=== PATIENT | female | born 1960 | race Caucasian/White ===

== ENCOUNTER 2018-11-08 15:27 | Inpatient (IN) | payer OTHER ==
[~2018-11-08] VITALS: Ht 170.2 cm; Wt 64.0 kg
[2018-11-08 15:40] VITALS: BP 121/77
--- NOTE | 2018-11-08 15:51 | NUR ---
PT AMBULATED TO [facility] O[facility]LL AT THIS TIME
--- NOTE | 2018-11-08 16:06 | NUR ---
PT AMBULATED TO BED 12.
--- NOTE | 2018-11-08 16:06 | NUR ---
PATIENT PRESENTS TO ED WITH c/o ble edema with pain upon ambulating---hx cirrhosis jundice to sclera full clear speech, no accessory muscle use noted at this time. . . DENIES N/V/D; SKIN IS PINK/WARM/DRY; AAOX4 WITH EVEN AND STEADY GAIT; LUNGS CLEAR BL; HR EVEN AND REGULAR; PT DENIES ANY FEVER, CP, SOB, OR COUGH AT THIS TIME; PATIENT STATES PAIN OF 7/10 AT THIS TIME; VSS; PATIENT POSITIONED FOR COMFORT; HOB ELEVATED; BEDRAILS UP X2; BED DOWN. ER MD MADE AWARE OF PT STATUS.
--- NOTE | 2018-11-08 16:21 | NUR ---
easy to awaken ---asked to change into gown c/o ble pain swelling +2 pedal pulse <3 sec cap refill---full clear speech awaits md rodas
[2018-11-08 17:17] LABS: BASOPHILS # (AUTO) 0.1 K/uL (0.00-0.22); BASOPHILS % (AUTO) 1.2 % (0.0-2.0); EOSINOPHILS # (AUTO) 0.1 K/uL (0-0.4); EOSINOPHILS % (AUTO) 1.1 % (0.0-4.0); HEMATOCRIT 31.8 % (36-48); HEMOGLOBIN 10.5 g/dL (12.0-16.0); LYMPHOCYTES # (AUTO) 0.8 K/uL (2.5-16.5); MEAN CORPUSCULAR HEMOGLOBIN 33 pg (27-31); MEAN CORPUSCULAR HGB CONC 33 g/dL (33-37); MEAN CORPUSCULAR VOLUME 99.5 fL (80-94); MONOCYTES # (AUTO) 0.6 K/uL (0.8-1.0); MONOCYTES % (AUTO) 9.5 % (1.7-9.3); NEUTROPHILS % (AUTO) 76.2 % (42.2-75.2); PLATELET COUNT (AUTO) 189 K/uL (140-450); RED BLOOD CELL COUNT(AUTO) 3.19 MIL/uL (4.20-5.40); RED CELL DISTRIBUTION WIDTH 21.4 % (11.6-13.7); WHITE BLOOD COUNT (AUTO) 6.5 K/uL (4.8-10.8)
[2018-11-08 17:35] LABS: PROTHROMBIN TIME 10.9 secs (10.8-13.4)
[2018-11-08 17:40] LABS: AMYLASE 201 U/L (25-115); ANION GAP 10.6 (8-16); CARBON DIOXIDE 29.3 mmol/L (21-32); CREATININE 0.6 mg/dL (0.6-1.3); LIPASE 131 U/L (73-393); POTASSIUM 3.9 mmol/L (3.5-5.1)
[2018-11-08 17:44] LABS: ALBUMIN 2.4 g/dL (3.4-5.0); TOTAL BILIRUBIN 0.7 mg/dL (0.0-1.0)
--- NOTE | 2018-11-08 18:00 | NUR ---
ultrasound at bedside
[2018-11-08 18:07] LABS: APPEARANCE,URINE CLOUDY (CLEAR); BILIRUBIN,URINE 2+ (NEGATIVE); BLOOD, URINE NEGATIVE (NEGATIVE); COLOR,URINE YELLOW (YELLOW); LEUKOCYTE ESTERASE ,URINE NEGATIVE (NEGATIVE); NITRITE, URINE NEGATIVE (NEGATIVE); PH,URINE 5.5 (5.0-9.0); UGLUCOSE NEGATIVE (NEGATIVE)
--- NOTE | 2018-11-08 18:29 | NUR ---
ultrasound finished[facility]
--- NOTE | 2018-11-08 18:41 | NUR ---
returned from ct via [facility]---awake alert; requested blanket continues to wait for results for dispo
--- NOTE | 2018-11-08 19:15 | NUR ---
RECEIVED REPORT FROM AM NURSE. PT LAYING BED, RR EVEN AND UNLABORED. VSS. ALL NEEDS MET.
[2018-11-08] MEDS ORDERED: NACL 0.9% 1,000 ML IV SCH (19:57)
[2018-11-08] MEDS ORDERED: DOCUSATE SODIUM 100 MG GELCAP PO PRN (20:00)
[2018-11-08] MEDS ORDERED: HYDROcodone/APAP 5/325 MG 1 TAB TAB PO PRN (20:00)
[2018-11-08] MEDS ORDERED: ONDANSETRON 4 MG/2 ML VIAL IM/IVP PRN (20:00)
[2018-11-08] MEDS ORDERED: ZOLPIDEM 5 MG TAB PO PRN (20:00)
[2018-11-08] MEDS ORDERED: ACETAMINOPHEN 325 MG TAB PO PRN (20:00)
[2018-11-08] MEDS ORDERED: KETOROLAC 30 MG/ML VIAL IVP ONE (20:10)
--- NOTE | 2018-11-08 20:10 | NUR ---
DR ZAZUETA AT BEDSIDE
--- NOTE | 2018-11-08 20:36 | NUR ---
Patient will be admitted to care of DR. SY. Admited to TELE. Will go to room 111A. Belongings list completed. Report to TOMMIE VICTORIA.
[2018-11-08 20:46] LABS: BARBITURATE, URINE NEG. ng/ml (NEG <=200); BENZODIAZEPINE, URINE NEG. ng/mL (NEG <=200); CANNABINOID, URINE NEG. ng/mL (NEG <=50); COCAINE, URINE NEG. ng/mL (NEG <=300); OPIATE, URINE NEG. ng/mL (NEG <=2000); PHENCYCLIDINE SCREEN,URINE NEG. ng/mL (NEG <=25)
--- NOTE | 2018-11-08 20:58 | NUR ---
PT ARRIVED TO UNIT VIA GURNEY AT 20:43. RECEIVED REPORT FROM NARROW FABRIC LOOM FIXER RONDA, THEN CONTINUED TO COLLECT MRSA SWAB AND ASSESSED PT. PT AAOX4, ON ROOM AIR. ABLE TO FOLLOW COMMANDS, AND ABLE TO MAKE NEEDS KNOWN. PT AMBULATES WITH STEADY GAIT, AND SKIN IS INTACT. ABDOMEN IS DISTENDED AND FIRM WITH SOME TENDERNESS. RESPIRATIONS EVEN AND UNLABORED. PT HAS A 20G IV TO RIGHT FOREARM, ASYMPTOMATIC, DRY, AND INTACT. DISCUSSED PLAN OF CARE WITH PT, PT VERBALIZED UNDERSTANDING. NO SIGNS OF DISTRESS NOTED. DENIES PAIN. VITAL SIGNS STABLE. BED IN LOWEST POSITION, CALL LIGHT WITHIN REACH. WILL CONTINUE TO MONITOR.
[2018-11-08 20:59] LABS: MAGNESIUM 1.2 mg/dL (1.8-2.4); PHOSPHORUS 4.4 mg/dL (2.5-4.9); THYROID STIMULATING HORMONE 2.21 uIU/mL (0.34-3.74)
[2018-11-08] MEDS ORDERED: NICOTINE TRANSD SYS 14 MG/24 HR PATCH TD SCH (22:00)
[2018-11-08] MEDS ORDERED: ALUMINUM HYD/MAG/SIMETHICONE 30 ML UDC PO SCH (22:15)
[2018-11-08] MEDS ORDERED: DICYCLOMINE HCL LIQUID 10 MG/5 ML UDC PO SCH (22:15)
[2018-11-08] MEDS ORDERED: LIDOCAINE VISCOUS 2% 20 ML UDC PO SCH (22:15)
[2018-11-08] MEDS: DEXT 5% /NACL 0.9% 1,000 ML IV SCH (22:22)
[2018-11-08 22:30] VITALS: BP 126/87
--- NOTE | 2018-11-08 22:45 | NUR ---
GOT CONSENT FROM PT FOR CT WITH CONTRAST AFTER DR ZAZUETA EXPLAINED THE PROCEDURE TO PT, AND PT HAD OPPORTUNITY TO ASK QUESTIONS. STARTED ANOTHER 20G IV ABOVE LEFT AC FOR CONTRAST.
[2018-11-08] MEDS ORDERED: PANTOPRAZOLE 40 MG TABEC PO SCH (23:00)
[2018-11-08] MEDS ORDERED: MAG SULF 2000 MG/WATER PREMIX 50 ML IV SCH (23:00)
--- NOTE | 2018-11-09 | NUR ---
NO SIGNS OF DISTRESS NOTED. DENIES PAIN. VITAL SIGNS STABLE. BED IN LOWEST POSITION, CALL LIGHT WITHIN REACH. WILL CONTINUE TO MONITOR.
--- NOTE | 2018-11-09 02:18 | NUR ---
PT SLEEPING, EASILY AROUSABLE. NO SIGNS OF DISTRESS NOTED. BED IN LOWEST POSITION, CALL LIGHT WITHIN REACH. WILL CONTINUE TO MONITOR.
[2018-11-09 04:00] VITALS: BP 128/87
--- NOTE | 2018-11-09 04:00 | NUR ---
VITAL SIGNS STABLE, DENIES HAVING ANY PAIN AT THIS TIME. NO SIGNS OF DISTRESS NOTED. BED IN LOWEST POSITION, CALL LIGHT WITHIN REACH. WILL CONTINUE TO MONITOR.
--- NOTE | 2018-11-09 04:40 | NUR ---
PT WENT TO CT.
--- NOTE | 2018-11-09 05:12 | NUR ---
PT IS BACK FROM CT AT THIS TIME.
[2018-11-09] MEDS: PANTOPRAZOLE 40 MG TABEC PO SCH (05:30)
--- NOTE | 2018-11-09 05:30 | NUR ---
ADMINISTERED SCHEDULED MEDICATION, PT TOLERATED WELL.
--- NOTE | 2018-11-09 07:26 | NUR ---
ENDORSED PT TO DAY SHIFT JULIEN ORELLANA, AT BEDSIDE, FOR CONTINUITY OF CARE. PT IN STABLE CONDITION.
--- NOTE | 2018-11-09 07:28 | NUR ---
RECEIVED HAND OFF REPORT FROM BLASTING COAL MINER NURSE. PT IS AWAKE AND RESTING COMFORTABLY IN BED. PT IS STABLE AND APPEARS IN NO APPARENT DISTRESS WILL CONTINUE TO MONITOR.
[2018-11-09 08:00] VITALS: BP 147/91
[2018-11-09 08:02] LABS: BASOPHILS # (AUTO) 0.1 K/uL (0.00-0.22); EOSINOPHILS # (AUTO) 0.2 K/uL (0-0.4); EOSINOPHILS % (AUTO) 2.2 % (0.0-4.0); HEMATOCRIT 34.3 % (36-48); HEMOGLOBIN 11.1 g/dL (12.0-16.0); LYMPHOCYTES # (AUTO) 0.8 K/uL (2.5-16.5); LYMPHOCYTES % (AUTO) 10.4 % (20.5-51.1); MEAN CORPUSCULAR HEMOGLOBIN 32 pg (27-31); MEAN CORPUSCULAR HGB CONC 32 g/dL (33-37); MEAN CORPUSCULAR VOLUME 100.2 fL (80-94); MONOCYTES # (AUTO) 0.7 K/uL (0.8-1.0); NEUTROPHILS # (AUTO) 5.7 K/uL (1.8-7.7); NEUTROPHILS % (AUTO) 77.4 % (42.2-75.2); PLATELET COUNT (AUTO) 194 K/uL (140-450); RED BLOOD CELL COUNT(AUTO) 3.42 MIL/uL (4.20-5.40); RED CELL DISTRIBUTION WIDTH 21.1 % (11.6-13.7); WHITE BLOOD COUNT (AUTO) 7.4 K/uL (4.8-10.8)
[2018-11-09 08:29] LABS: T4 (THYROXINE) 10.6 ug/dL (4.5-12.0)
--- NOTE | 2018-11-09 08:32 | NUR ---
PATIENT HAS BEEN SCREENED AND CATEGORIZED MODERATE NUTRITION RISK. PATIENT WILL BE SEEN WITHIN 3-5 DAYS OF ADMISSION. 11/11/18CHID[address]
[2018-11-09] MEDS: NICOTINE TRANSD SYS 14 MG/24 HR PATCH TD SCH (08:52)
--- NOTE | 2018-11-09 09:00 | NUR ---
FREQUENT ROUNDING ON PATIENT PT IS STABLE AND IN NO APPARENT DISTRESS. ALL SAFETY MEASURES ARE IN PLACE. WILL CONTINUE TO MONITOR.
[2018-11-09 09:38] LABS: ANION GAP 12.7 (8-16); CREATININE 0.5 mg/dL (0.6-1.3); POTASSIUM 4.7 mmol/L (3.5-5.1)
[2018-11-09 10:31] LABS: MAGNESIUM 1.7 mg/dL (1.8-2.4); PHOSPHORUS 3.3 mg/dL (2.5-4.9)
[2018-11-09 11:01] LABS: CHOL/HDL RATIO 6.4 (1-4.5)
--- NOTE | 2018-11-09 11:05 | NUR ---
PT AMBULATED TO THE BATHROOM ON HER OWN. PT IS STABLE AND IN NO APPARENT DISTRESS. ALL SAFETY MEASURES ARE IN PLACE. WILL CONTINUE TO MONITOR.
[2018-11-09] MEDS: DEXT 5% /NACL 0.9% 1,000 ML IV SCH (11:30)
[2018-11-09 12:00] VITALS: BP 144/83
[2018-11-09] MEDS ORDERED: SENNA 8.6 MG TAB PO SCH (12:30)
--- NOTE | 2018-11-09 13:15 | NUR ---
FREQUENT ROUNDING PT IS AWAKE IN BED. PT IS STABLE AND IN NO APPARENT DISTRESS. ALL SAFETY MEASURES ARE IN PLACE. WILL CONTINUE TO MONITOR.
[2018-11-09] MEDS: LACTULOSE 20 GM/30 ML UDC PO SCH ×3 (14:03→20:26)
--- NOTE | 2018-11-09 15:20 | NUR ---
FREQUENT ROUNDING PT IS STABLE AND IN NO APPARENT DISTRESS. ALL SAFETY MEASURES ARE IN PLACE WILL CONTINUE TO MONITOR.
[2018-11-09] MEDS ORDERED: MAGNESIUM OXIDE 400 MG TAB PO SCH (15:30)
[2018-11-09 16:00] VITALS: BP 148/92
[2018-11-09] MEDS ORDERED: METOCLOPRAMIDE 10 MG/2 ML INJ VIAL IVP PRN (16:00)
--- NOTE | 2018-11-09 17:25 | NUR ---
PT IS AWAKE IN BED. PT AMBULATED TO THE BATHROOM. PT IS STABLE AND IN NO APPARENT DISTRESS. ALL SAFETY MEASURES ARE IN PLACE
[2018-11-09] MEDS ORDERED: BOWEL EVACUANT DRINK 4,000 ML PDS PO SCH (18:00)
--- NOTE | 2018-11-09 19:34 | NUR ---
ENDORSED PT TO TAKE OFF MAN NURSE. PT IS AWAKE IN BED PT IS STABLE AND IN NO SIGNS OF DISTRESS. ALL SAFETY MEASURES ARE IN PLACE.
--- NOTE | 2018-11-09 19:35 | NUR ---
RECEIVED PT FROM AM NURSE IN STABLE CONDITION FOR CONTINUITY OF CARE. AWAKE,ALERT AND ORIENTED X4. ON HAT IRONER. WITH NO C/O PAIN. HAS IVF INFUSING WELL ON THE RT FA G#20. ANOTHER HL ON THE LT AC G#20. CLEAR AND PATENT. PT STILL TAKING PREP GOLYTELY PREP FOR EGD/COLONOSCOPY TOMORROW. PT SAID STOOL STILL DIRTY. SO ENCOURAGED PT TO CONTINUE DRINKING . BED ON LOW POSITION. SIDE RAILS UP X2. CALL LIGHT PLACED WITHIN REACH. WILL CONTINUE TO MONITOR.
[2018-11-09 20:00] VITALS: BP_SYST 145; BP_SYST 150; BP_DIAS 83
--- NOTE | 2018-11-09 20:27 | NUR ---
PT STILL NEED LACTULOSE AND CITROMA FOR TONIGHT. EXPLAINED TO PT THAT THESE ARE IN ADDITION FROM THE GOLYTELY THAT SHE IS TAKING.PT SAID SHE WILL TAKE THEM WHEN STOMACH IS BETTER.
[2018-11-09] MEDS ORDERED: MAGNESIUM CITRATE 300 ML BTL PO SCH (21:00)
--- NOTE | 2018-11-09 21:00 | NUR ---
Patient's Plan of Care was discussed and reviewed with AUTOMATION TESTER: NAHID MUSA Addendum: 11/09/18 at 2232 by Shereen Andrea RN CANCEL ABOVE NOTES. WRONG PT.
--- NOTE | 2018-11-09 22:00 | NUR ---
STOOL FOR OB NOT COLLECTED, STOOL IS LIQUID ,WATERY.
--- NOTE | 2018-11-09 23:08 | NUR ---
PT C/O NAUSEA FROM TAKING ORAL PREP. ZOFRAN IVP GIVEN. WILL CONTINUE TO MONITOR.
--- NOTE | 2018-11-10 00:05 | NUR ---
PT HAS BEEN HAVING LIQUID YELLOWISH STOOL NOW .WITH TINY PARTICLES. PT REFUSED TO FINISH THE CITROMA. SHE SAID SHE STILL NAUSEATED. GOLYTELY ALMOST DONE. WILL KEEP NPO AFTER MN.
[2018-11-10 00:16] VITALS: BP 133/81
[2018-11-10] MEDS: DEXT 5% /NACL 0.9% 1,000 ML IV SCH (00:50)
--- NOTE | 2018-11-10 02:00 | NUR ---
PT USED TO BSC AGAIN. HAD ANOTHER WATERY STOOL. STARTING TO GET CLEAR.
[2018-11-10 03:30] VITALS: BP 129/81
--- NOTE | 2018-11-10 04:30 | NUR ---
PT SLEEPING WELL AT THIS TIME. NO S/S OF ANY DISCOMFORT NOR PAIN NOTED.
[2018-11-10] MEDS: PANTOPRAZOLE 40 MG TABEC PO SCH (06:20)
--- NOTE | 2018-11-10 07:30 | NUR ---
ENDORSED PT IN STABLE CONDITION TO AM NURSE FOR CONTINUITY OF CARE.
--- NOTE | 2018-11-10 07:35 | NUR ---
RECEIVED HAND OFF REPORT FROM RECONDITIONING ASSOCIATE NURSE PATIENT IS AWAKE AND AMBULATING STEADY THROUGHOUT HER ROOM. ALL SAFETY MEASURES ARE IN PLACE. PT APPEARS STABLE AND IN NO APPARENT DISTRESS. WILL CONTINUE TO MONITOR.
[2018-11-10 07:57] LABS: BASOPHILS % (AUTO) 0.5 % (0.0-2.0); EOSINOPHILS # (AUTO) 0.1 K/uL (0-0.4); EOSINOPHILS % (AUTO) 1.5 % (0.0-4.0); HEMATOCRIT 35.1 % (36-48); HEMOGLOBIN 11.5 g/dL (12.0-16.0); LYMPHOCYTES # (AUTO) 0.9 K/uL (2.5-16.5); LYMPHOCYTES % (AUTO) 14.3 % (20.5-51.1); MEAN CORPUSCULAR HEMOGLOBIN 33 pg (27-31); MEAN CORPUSCULAR HGB CONC 33 g/dL (33-37); MEAN CORPUSCULAR VOLUME 100.5 fL (80-94); MONOCYTES # (AUTO) 0.5 K/uL (0.8-1.0); MONOCYTES % (AUTO) 8.3 % (1.7-9.3); NEUTROPHILS # (AUTO) 4.8 K/uL (1.8-7.7); NEUTROPHILS % (AUTO) 75.4 % (42.2-75.2); PLATELET COUNT (AUTO) 210 K/uL (140-450); RED BLOOD CELL COUNT(AUTO) 3.49 MIL/uL (4.20-5.40); RED CELL DISTRIBUTION WIDTH 20.9 % (11.6-13.7); WHITE BLOOD COUNT (AUTO) 6.3 K/uL (4.8-10.8)
[2018-11-10 08:00] VITALS: BP 128/88
[2018-11-10 08:33] LABS: CARBON DIOXIDE 25.6 mmol/L (21-32); CREATININE 0.5 mg/dL (0.6-1.3); POTASSIUM 3.6 mmol/L (3.5-5.1)
[2018-11-10 08:43] LABS: MAGNESIUM 1.7 mg/dL (1.8-2.4); PHOSPHORUS 2.5 mg/dL (2.5-4.9)
--- NOTE | 2018-11-10 08:55 | NUR ---
DOUBLE CHECKED WITH OR NURSES THAT IT IS OK TO APPLY NICOTINE PATCH TO PATIENT WHEN SHE IS PLANNING FOR COLONOSCOPY AND ENDOSCOPY. OR NURSE SAID THAT IS OK TO APPLY THE PATCH.
[2018-11-10] MEDS: LACTULOSE 20 GM/30 ML UDC PO SCH ×2 (09:27→20:10)
[2018-11-10] MEDS: NICOTINE TRANSD SYS 14 MG/24 HR PATCH TD SCH (09:39)
--- NOTE | 2018-11-10 10:56 | NUR ---
FREQUENT ROUNDING ON PATIENT. PT IS ASLEEP IN BED. NOTABLE CHEST RISE AND FALL. PT APPEARS STABLE AND IN NO APPARENT DISTRESS. ALL SAFETY MEASURES ARE IN PLACE. WILL CONTINUE TO MONITOR.
--- NOTE | 2018-11-10 10:57 | NUR ---
CHECKED BIG BOARD. PT ISNT SCHEDULED FOR COLONOSCOPY OR ENDOSCOPY AT THE TIME. WILL CONTINUE TO CHECK FOR A TIME
--- NOTE | 2018-11-10 11:00 | NUR ---
OR NURSES ARRIVED TO UNIT TO TAKE PATIENT TO THE OR FOR THE PROCEDURE.
[2018-11-10] MEDS ORDERED: MIDAZOLAM 2 MG/2 ML VIAL ONE ×2 (11:25)
[2018-11-10] MEDS ORDERED: fentaNYL 0.05 MG/ML VIAL ONE (11:25)
[2018-11-10] MEDS ORDERED: diphenhydrAMINE 50 MG/ML VIAL ONE (11:26)
[2018-11-10 12:00] VITALS: BP 96/65
[2018-11-10 12:12] LABS: FOLIC ACID 9.7 ng/mL (>3.0)
--- NOTE | 2018-11-10 12:45 | NUR ---
PT ARRIVED BACK ON THE UNIT. VITAL SIGNS TAKEN. PLACED PATIENT BACK ON TELE MONITOR. PT IS SITTING ON THE COMMODE, PT APPEARS STABLE AND IN NO APPARENT DISTRESS. ALL SAFETY MEASURES ARE IN PLACE. PT IS INFUSING 75MLS/HR FLUIDS PER ORDERS WILL CONTINUE TO MONITOR. 96.1 TEMP 99% SPO2 ROOM AIR 94 HR 96/65
[2018-11-10] MEDS ORDERED: POTASSIUM CHLORIDE 20% 40 MEQ/15 ML UDC GT SCH (13:00)
[2018-11-10] MEDS ORDERED: MIDAZOLAM 2 MG/2 ML VIAL IVP ONE (13:15)
[2018-11-10] MEDS ORDERED: fentaNYL 0.05 MG/ML VIAL IVP ONE (13:15)
--- NOTE | 2018-11-10 14:05 | NUR ---
FREQUENT ROUNDING PT IS STABLE AND IN NO APPARENT DISTRESS. ALL SAFETY MEASURES ARE IN PLACE. WILL CONTINUE TO MONITOR.
--- NOTE | 2018-11-10 14:50 | NUR ---
GAVE PT JELLO CRACKERS AND CHICKEN BROTH PT TOLERATED WELL. WILL CONTINUE TO ADVANCE DIET.
[2018-11-10 16:00] VITALS: BP 142/64
--- NOTE | 2018-11-10 16:30 | NUR ---
FREQUENT ROUNDING PT IS STABLE AND IN NO APPARENT DISTRESS. IVF INFUSING IV SITE SHOWS NO SIGNS OF INFILTRATION OR INFLAMMATION. ALL SAFETY MEASURES ARE IN PLACE. WILL CONTINUE TO MONITOR.
--- NOTE | 2018-11-10 18:28 | NUR ---
FOR MOTOR RUNNER PT REQUEST TO GO TO [facility] STATES SHE WAS IN CONTACT WITH THE DIRECTOR WHO ADMITS PATIENTS. PT ALSO STATES SHES BEEN TRYING TO GET PAULA [phone] FROM [facility] [place] WHERE SHE CAME FROM BECAUSE SHE NEEDS HER THINGS. Addendum: 11/10/18 at 1830 by Marcelina Grimm RN [facility]
--- NOTE | 2018-11-10 19:39 | NUR ---
ENDORSED PT TO SUPERVISOR ASSEMBLY STOCK NURSE, PT IS AWAKE IN BED. PT IS STABLE AND IN NO APPARENT DISTRESS. ENDORSED TO NURSE THAT PATIENT REQUEST TO BE TRANSFERED TO [place] [facility] AND NOT DISCHARGED WITH NO PLACE TO GO. ALSO INSTRUCTED SUPERVISOR ASSEMBLY STOCK RN THAT THE PATIENT NEEDS HER BELONGINGS FROM [facility]. IVF INFUSING IV SITE IS PATENT AND SHOWS NO SIGNS OF INFILTRATION OR INFLAMMATION. ALL SAFETY MEASURES ARE IN PLACE.
--- NOTE | 2018-11-10 19:40 | NUR ---
RECEIVED BEDSIDE REPORT FROM DAY SHIFT NURSE ESTEBAN. PT A/O X4 LAYING IN BED. NO RESP DISTRESS. IV L FA 18G INFUSING D5NS @75. IV CLEAN DRY INTACT. ABD DISTENDED. SKIN INTACT. BEDSIDE COMMODE. VITAL SIGNS STABLE. DENIES PAIN. EXPLAINED PLAN OF CARE. VERBALIZED UNDERSTANDING. BED IN LOWEST POSITION. CALL LIGHT WITHIN REACH. Addendum: 11/10/18 at 2153 by Maxine Staley RN IV SITE CORRECTION L AC 20 G.
[2018-11-10] MEDS: AMITRIPTYLINE 10 MG TAB PO SCH (20:10)
--- NOTE | 2018-11-10 20:10 | NUR ---
ADMINISTERED SCHEDULED MEDS. EDUCATED ON MEDS. VERBALIZED UNDERSTANDING. PT TOLERATED WELL. NO SIGNS OF DISTRESS. DENIES PAIN. CALL LIGHT WITHIN REACH.
--- NOTE | 2018-11-10 21:15 | NUR ---
PT LAYING IN BED WATCHING TV. NO SIGNS OF RESP DISTRESS. WILL CONTINUE TO MONITOR. CALL LIGHT WITHIN REACH.
--- NOTE | 2018-11-10 23:00 | NUR ---
PT SLEEPING IN BED. EASILY AROUSABLE. NO SIGNS OF RESP DISTRESS. NO COMPLAINTS AT THIS TIME. BED IN LOWEST POSITION. CALL LIGHT WITHIN REACH. WILL CONTINUE TO MONITOR.
[2018-11-10 23:49] VITALS: BP 132/84
--- NOTE | 2018-11-11 00:48 | NUR ---
PT SLEEPING IN BED. NO SIGNS OF DISTRESS OR DISCOMFORT. EASILY AROUSABLE. WILL CONTINUE TO MONITOR. CALL LIGHT WITHIN REACH.
--- NOTE | 2018-11-11 01:38 | NUR ---
PT CURRENTLY SLEEPING IN BED. NO SIGNS OF DISTRESS OR DISCOMFORT. EASILY AROUSABLE. NO COMPLAINTS AT THIS TIME. WILL CONTINUE TO MONITOR. CALL LIGHT WITHIN REACH.
--- NOTE | 2018-11-11 03:07 | NUR ---
PT SLEEPING IN BED. NO SIGNS OF DISTRESS OR DISCOMFORT. EASILY AROUSABLE. NO COMPLAINTS AT THIS TIME. WILL CONTINUE TO MONITOR. CALL LIGHT WITHIN REACH.
--- NOTE | 2018-11-11 04:55 | NUR ---
PT SLEEPING. NO SIGNS OF DISTRESS OR DISCOMFORT. EASILY AROUSABLE. NO COMPLAINTS AT THIS TIME. WILL CONTINUE TO MONITOR. CALL LIGHT WITHIN REACH.
[2018-11-11] MEDS: PANTOPRAZOLE 40 MG TABEC PO SCH (05:39)
--- NOTE | 2018-11-11 05:40 | NUR ---
ADMINISTERED MEDS PER ORDER. EDUCATED ON SIDE EFFECTS. VERBALIZED UNDERSTANDING. TOLERATED WELL. PT ASKED TO SHOWER. WILL ASSIST PT TO SHOWER. COVERED IV SITE WITH PLASTIC. WILL CONTINUE TO MONITOR.
--- NOTE | 2018-11-11 05:49 | NUR ---
PT IN SHOWER.
--- NOTE | 2018-11-11 06:15 | NUR ---
PT OUT OF SHOWER. BACK IN BED. BED IN LOWEST POSITION. CALL LIGHT WITHIN REACH. WILL CONTINUE TO MONITOR.
--- NOTE | 2018-11-11 07:27 | NUR ---
RECEIVED BEDSIDE REPORT FROM RN SUMMER. PT STABLE, AWAKE, ALERT AND ORIENTED X4. NO SIGNS OF DISTRESS NOTED. DENIES PAIN OR SOB. NO REDNESS, SWELLING, OR INFLAMMATION NOTED ON IV SITE. CALL RODGERS WITHIN REACH. BED IN LOWEST POSITION. SAFETY MEASURES IN PLACE. PLAN OF CARE REVIEWED.
--- NOTE | 2018-11-11 07:28 | NUR ---
ENDORSED PT TO AM SHIFT RN MARIA M. PT SITTING UP IN BED. IN STABLE CONDITION.
[2018-11-11 07:41] LABS: BASOPHILS # (AUTO) 0.1 K/uL (0.00-0.22); BASOPHILS % (AUTO) 1.3 % (0.0-2.0); EOSINOPHILS # (AUTO) 0.1 K/uL (0-0.4); EOSINOPHILS % (AUTO) 2.1 % (0.0-4.0); HEMOGLOBIN 11.8 g/dL (12.0-16.0); LYMPHOCYTES # (AUTO) 1.1 K/uL (2.5-16.5); LYMPHOCYTES % (AUTO) 17.8 % (20.5-51.1); MEAN CORPUSCULAR HEMOGLOBIN 33 pg (27-31); MEAN CORPUSCULAR HGB CONC 33 g/dL (33-37); MEAN CORPUSCULAR VOLUME 100.5 fL (80-94); MONOCYTES # (AUTO) 0.4 K/uL (0.8-1.0); MONOCYTES % (AUTO) 6.1 % (1.7-9.3); NEUTROPHILS # (AUTO) 4.6 K/uL (1.8-7.7); NEUTROPHILS % (AUTO) 72.7 % (42.2-75.2); PLATELET COUNT (AUTO) 223 K/uL (140-450); RED BLOOD CELL COUNT(AUTO) 3.58 MIL/uL (4.20-5.40); RED CELL DISTRIBUTION WIDTH 20.6 % (11.6-13.7); WHITE BLOOD COUNT (AUTO) 6.3 K/uL (4.8-10.8)
[2018-11-11 07:46] LABS: CARBON DIOXIDE 24.8 mmol/L (21-32); POTASSIUM 3.7 mmol/L (3.5-5.1)
[2018-11-11 07:47] LABS: ANION GAP 11.9 (8-16); CREATININE 0.5 mg/dL (0.6-1.3)
[2018-11-11 08:00] VITALS: BP 128/87
[2018-11-11 09:03] LABS: MAGNESIUM 1.3 mg/dL (1.8-2.4); PHOSPHORUS 2.9 mg/dL (2.5-4.9)
[2018-11-11] MEDS: LACTULOSE 20 GM/30 ML UDC PO SCH ×2 (09:45→20:05)
[2018-11-11] MEDS: SENNA 8.6 MG TAB PO SCH (09:46)
[2018-11-11] MEDS: POTASSIUM CHLORIDE 20% 40 MEQ/15 ML UDC GT SCH (09:47)
[2018-11-11] MEDS: MULTIVITAMIN/MINERALS 1 TAB PO SCH (09:47)
[2018-11-11] MEDS: VITAMIN B COMPLEX W/C 1 TAB PO SCH (09:47)
[2018-11-11] MEDS: NICOTINE TRANSD SYS 14 MG/24 HR PATCH TD SCH (09:48)
--- NOTE | 2018-11-11 09:50 | NUR ---
ADMINISTERED SCHEDULED MEDICATIONS, PT TOLERATED WELL. LEFT A MESSAGE TO SERVICE DESK MANAGER MIGUEL ANGEL PER PT REQUEST TO SPEAK WITH CM REGARDING PLAN OF CARE.
--- NOTE | 2018-11-11 11:05 | NUR ---
[facility] JOSE DID NOT ANSWER, UNABLE TO LEAVE A MESSAGE DUE TO VOICEMAIL NOT SET UP. WILL FOLLOW UP. Addendum: 11/11/18 at 1108 by Santos Mendoza RN SPOKE WITH RAKER BUFFING WHEEL MIGUEL ANGEL REGARDING PT'S PLAN OF CARE.
--- NOTE | 2018-11-11 12:31 | NUR ---
NOTIFIED DR. DENSON AND DR. LOPES ON POSSIBLE CRITICAL FINDINGS
--- NOTE | 2018-11-11 13:30 | NUR ---
PER PT, SHE WAS ABLE TO SPEAK WITH JOSE FROM [facility]. JOSE WILL FOLLOW UP WITH PT REGARDING TRANSFER TO [facility].
--- NOTE | 2018-11-11 14:33 | NUR ---
LIVER CIRRHOSIS EDUCATION MATERIAL WAS PROVIDED TO PT, AND PT ACCEPTED.
--- NOTE | 2018-11-11 15:40 | NUR ---
VITAL SIGNS TAKEN, PT STABLE. NO OTHER NEEDS AT THIS TIME.
[2018-11-11 16:00] VITALS: BP 135/84
--- NOTE | 2018-11-11 16:15 | NUR ---
SPOKE WITH CARLITO FROM [employer] REGARDING PT'S PLAN OF CARE. PAINT ROLLER COVER MACHINE SETTER MIGUEL ANGEL FLORES.
--- NOTE | 2018-11-11 16:30 | NUR ---
MADE DR DENSON AWARE OF MAGNESIUM LEVEL 1.3. MD WILL PUT IN NEW ORDERS.
--- NOTE | 2018-11-11 17:30 | NUR ---
PT STABLE, AMBULATED TO THE BATHROOM WITH STEADY GAIT. NO OTHER NEEDS AT THIS TIME.
--- NOTE | 2018-11-11 18:23 | NUR ---
ADMINISTERED SCHEDULED MEDICATION, PT TOLERATED WELL. NO OTHER NEEDS AT THIS TIME.
[2018-11-11] MEDS ORDERED: MAG SULF 2000 MG/WATER PREMIX 100 ML IV SCH (18:30)
--- NOTE | 2018-11-11 19:10 | NUR ---
ENDORSED PT TO JULIEN CASTRO FOR CONTINUITY OF CARE. PT STABLE.
--- NOTE | 2018-11-11 19:11 | NUR ---
RECEIVED BEDSIDE REPORT FROM DAY SHIFT NURSE. PT IN STABLE CONDITION. NO S/S OF SOB. RESPIRATORY EVEN AND UNLABORED. DENIED PAIN OR DISCOMFORT. PT A/O X4. PT AMBULATE. IV SITE ON LAC 20G, RUNNING MAG @25MLS/HR. PATENT, INTACT AND ASYMPTOMATIC. SKIN INTACT. WARM AND DRY. BED IN LOW POSITION, CALL LIGHT WITHIN REACH. WILL CONTINUE TO MONITOR. Addendum: 11/11/18 at 2147 by Usha Mcclure RN 50ML 1ST BAG OF MAG RIDER RUNNING, 2ND BAG WILL BE GIVEN AFTER 1ST BAG DONE.
[2018-11-11] MEDS: AMITRIPTYLINE 10 MG TAB PO SCH (20:05)
--- NOTE | 2018-11-11 20:05 | NUR ---
GIVEN 2ND 50ML BAG OF MAG RIDER @25ML. ADMINISTERED ELAVIL AND CEPHULAC MD ORDERED. PT TOLERATED WELL.
[2018-11-12] VITALS: BP 110/78
--- NOTE | 2018-11-12 00:05 | NUR ---
PT SLEEPING IN BED. NO S/S OF ANY RESPIRATORY DISTRESS NOTED. VITAL SIGN CHECKED. PT IN STABLE CONDITION WITH NORMAL RANGE. NO S/S OF ANY DISCOMFORT. WILL CONTINUE TO MONITOR.
--- NOTE | 2018-11-12 02:05 | NUR ---
PT SLEEPING IN BED. NO S/S OF SOB OR ANY DISCOMFORT NOTED. BED IN LOW POSITION. CALL LIGHT WITHIN REACH.
--- NOTE | 2018-11-12 03:10 | NUR ---
PT C/O HEADACHE, 10/13. GIVEN TYLENOL MD PRN ORDERED. PT TOLERATED WELL. WILL CONTINUE TO MONITOR.
[2018-11-12] MEDS: PANTOPRAZOLE 40 MG TABEC PO SCH (05:39)
--- NOTE | 2018-11-12 05:39 | NUR ---
PT AWAKE. GIVEN PROTONIX MD ORDERED. PT TOLERATED WELL. BED IN LOW POSITION. CALL LIGHT WITHIN REACH.
--- NOTE | 2018-11-12 07:23 | NUR ---
ENDORSED PATIENT TO DAY SHIFT NURSE. PT IN STABLE CONDITION.
--- NOTE | 2018-11-12 07:25 | NUR ---
RECEIVED BEDSIDE REPORT FROM FINISHING WIRE SAWYER NURSE. PATIENT IS AWAKE AND READING ON BED AT THIS TIME. PATIENT IS AOX4. RESPIRATION EVEN AND UNLABORED. ON RA. DENIES PAIN AND SOB. NO SIGNS OF DISTRESS NOTED. IV ON LAC 20G, INTACT AND DRY, SL. SKIN CLEAN AND DRY, APPROPRIATE TO ETHNICITY. ABLE TO AMBULATE WITH STANDBY ASSISTANCE. DISCUSSED PLAN OF CARE WITH PATIENT AND PATIENT VERBALIZED UNDERSTANDING. BED IN LOW POSITION AND CALL LIGHT WITHIN REACH. INSTRUCTED PATIENT TO USE THE CALL LIGHT FOR ANY ASSISTANCE AND PATIENT WAS AWARE.
[2018-11-12 07:41] LABS: BASOPHILS % (AUTO) 0.7 % (0.0-2.0); EOSINOPHILS # (AUTO) 0.1 K/uL (0-0.4); EOSINOPHILS % (AUTO) 1.9 % (0.0-4.0); HEMATOCRIT 34.8 % (36-48); HEMOGLOBIN 11.4 g/dL (12.0-16.0); LYMPHOCYTES # (AUTO) 0.9 K/uL (2.5-16.5); LYMPHOCYTES % (AUTO) 14.4 % (20.5-51.1); MEAN CORPUSCULAR HEMOGLOBIN 33 pg (27-31); MEAN CORPUSCULAR HGB CONC 33 g/dL (33-37); MEAN CORPUSCULAR VOLUME 100.6 fL (80-94); MONOCYTES # (AUTO) 0.4 K/uL (0.8-1.0); MONOCYTES % (AUTO) 7.3 % (1.7-9.3); NEUTROPHILS # (AUTO) 4.6 K/uL (1.8-7.7); NEUTROPHILS % (AUTO) 75.7 % (42.2-75.2); PLATELET COUNT (AUTO) 205 K/uL (140-450); RED BLOOD CELL COUNT(AUTO) 3.46 MIL/uL (4.20-5.40); WHITE BLOOD COUNT (AUTO) 6.1 K/uL (4.8-10.8)
[2018-11-12 08:00] VITALS: BP 116/82
[2018-11-12 08:22] LABS: ANION GAP 11.7 (8-16); CREATININE 0.6 mg/dL (0.6-1.3); POTASSIUM 3.7 mmol/L (3.5-5.1)
[2018-11-12 08:25] LABS: MAGNESIUM 1.8 mg/dL (1.8-2.4); PHOSPHORUS 3.2 mg/dL (2.5-4.9)
[2018-11-12] MEDS: LACTULOSE 20 GM/30 ML UDC PO SCH (08:49)
[2018-11-12] MEDS: MULTIVITAMIN/MINERALS 1 TAB PO SCH (08:50)
[2018-11-12] MEDS: VITAMIN B COMPLEX W/C 1 TAB PO SCH (08:50)
[2018-11-12] MEDS: SENNA 8.6 MG TAB PO SCH (08:51)
[2018-11-12] MEDS: NICOTINE TRANSD SYS 14 MG/24 HR PATCH TD SCH (08:51)
[2018-11-12] MEDS: POTASSIUM CHLORIDE 20% 40 MEQ/15 ML UDC GT SCH (08:52)
--- NOTE | 2018-11-12 08:58 | NUR ---
ADMINISTERED MEDS PER MD ORDER, PATIENT TOLERATED WELL. PATIENT IS WATCHING TV ON BED. DENIES PAIN AND SOB. NO SIGNS OF DISTRESS NOTED. BED IN LOW POSITION AND CALL LIGHT WITHIN REACH. INSTRUCTED PATIENT TO USE THE CALL LIGHT FOR ANY ASSISTANCE AND PATIENT WAS AWARE.
--- NOTE | 2018-11-12 11:10 | NUR ---
PATIENT IS RESTING ON BED AND WATCHING TV AT THIS TIME. DENIES PAIN AND SOB. NO SIGNS OF DISTRESS NOTED. . SAFETY MEASURES IN PLACE. BED IN LOW POSITION AND CALL LIGHT WITHIN REACH. INSTRUCTED PATIENT TO USE THE CALL LIGHT FOR ANY ASSISTANCE AND PATIENT WAS AWARE.
--- NOTE | 2018-11-12 13:12 | NUR ---
PATIENT IS AWAKE AND ALERT ON BED. SHE IS WATCHING TV AT THIS TIME. DENIES PAIN AND SOB. NO SIGNS OF DISTRESS NOTED. SAFETY MEASURES IN PLACE. BED IN LOW POSITION AND CALL LIGHT WITHIN REACH. INSTRUCTED PATIENT TO USE THE CALL LIGHT FOR ANY ASSISTANCE.
--- NOTE | 2018-11-12 15:19 | NUR ---
11/12/18 RD INITIAL ASSESSMENT COMPLETED PLEASE REFER TO NUTRITION ASSESSMENT UNDER CARE ACTIVITY FOR ESTIMATED NUTRITIONAL NEEDS. 1. CONTINUE REGULAR DIET TOLERATED 2. CIRRHOSIS EDUCATION WAS PROVIDED 3. RD TO FOLLOW-UP 5-7 DAYS, LOW RISK CHIDI WELCH RD
--- NOTE | 2018-11-12 15:29 | NUR ---
PATIENT IS ASKING FOR TWO PUDDINGS. PROVIDED REQUEST. PATIENT IS WATCHING TV ON BED. DENIES PAIN AND SOB. NO SIGNS OF DISTRESS NOTED. BED IN LOW POSITION AND CALL LIGHT WITHIN REACH.
[2018-11-12] MEDS ORDERED: SIMETHICONE 80 MG TAB.CHEW PO SCH (15:30)
[2018-11-12 16:00] VITALS: BP 124/84
--- NOTE | 2018-11-12 17:45 | NUR ---
PATIENT IS EATING DINNER ON BED AT THIS TIME. DENIES PAIN AND SOB. NO SIGNS OF DISTRESS NOTED. SAFETY MEASURES IN PLACE. BED IN LOW POSITION AND CALL LIGHT WITHIN REACH. INSTRUCTED PATIENT TO USE THE CALL LIGHT FOR ANY ASSISTANCE AND PATIENT WAS AWARE.
--- NOTE | 2018-11-12 19:07 | NUR ---
ENDORSED PATIENT AT BEDSIDE TO FISHER SWORDFISH NURSE FOR CONTINUITY OF CARE. PATIENT IS IN STABLE CONDITION.
--- NOTE | 2018-11-12 19:08 | NUR ---
RECEIVED BEDSIDE REPORT FROM DAY SHIFT NURSE. PT IN STABLE CONDITION. NO S/S OF SOB. BREATHING EVENLY AND UNLABORED. DENIED PAIN OR DISCOMFORT. PT AMBULATE. IV SITE ON LAC 20G, SL. PATENT, INTACT AND ASYMPTOMATIC. SKIN INTACT. WARM AND DRY. BED IN LOW POSITION, CALL LIGHT WITHIN REACH. WILL CONTINUE TO MONITOR.
[2018-11-12] MEDS: AMITRIPTYLINE 25 MG TAB PO SCH (20:31)
--- NOTE | 2018-11-12 20:31 | NUR ---
ELAVIL GIVEN. PT TOLERATED WELL. BED IN LOW POSITION. CALL RODGERS WITHIN REACH.
--- NOTE | 2018-11-12 22:55 | NUR ---
PT SLEEPING IN BED. NO S/S OF SOB OR ANY RESPIRATORY DISTRESS NOTED. WILL CONTINUE TO MONITOR.
[2018-11-13] VITALS: BP 95/60
--- NOTE | 2018-11-13 00:10 | NUR ---
VS CHECKED. PT IN STABLE CONDITION, SLEEPING IN BED. NO S/S OF RESPIRATORY DISTRESS NOTED. WILL CONTINUE TO MONITOR.
--- NOTE | 2018-11-13 02:35 | NUR ---
PT SLEEPING IN BED. NO ACUTE DISCOMFORT NOTED. BED IN LOW POSITION. CALL LIGHT WITHIN REACH.
--- NOTE | 2018-11-13 04:15 | NUR ---
PT SLEEPING IN BED COMFORTABLY. NO S/S OF ANY DISCOMFORT. WILL CONTINUE TO MONITOR.
[2018-11-13] MEDS: PANTOPRAZOLE 40 MG TABEC PO SCH (05:38)
--- NOTE | 2018-11-13 05:38 | NUR ---
GIVEN PROTONIX. PT TOLERATED WELL.
--- NOTE | 2018-11-13 07:26 | NUR ---
ENDORSED PT TO DAY SHIFT NURSE. PT IN STABLE CONDITION.
--- NOTE | 2018-11-13 07:27 | NUR ---
REPORT RECEIVED FROM GLAZIER APPRENTICE NURSE AT BEDSIDE FOR CONTINUITY OF CARE. PATIENT ASLEEP. IV SITE INTACT, PATENT, SALINE LOCKED. RESPIRATIONS EVEN AND UNLABORED ON ROOM AIR. UPDATED BOARD. SAFETY PRECAUTIONS IN PLACE, CALL LIGHT WITHIN REACH, WILL CONTINUE TO MONITOR PATIENT.
[2018-11-13 07:54] LABS: EOSINOPHILS # (AUTO) 0.1 K/uL (0-0.4); EOSINOPHILS % (AUTO) 2.9 % (0.0-4.0); HEMATOCRIT 30.8 % (36-48); HEMOGLOBIN 10.2 g/dL (12.0-16.0); LYMPHOCYTES # (AUTO) 0.5 K/uL (2.5-16.5); MEAN CORPUSCULAR HEMOGLOBIN 33 pg (27-31); MEAN CORPUSCULAR HGB CONC 33 g/dL (33-37); MEAN CORPUSCULAR VOLUME 99.8 fL (80-94); MONOCYTES # (AUTO) 0.5 K/uL (0.8-1.0); NEUTROPHILS # (AUTO) 3.4 K/uL (1.8-7.7); NEUTROPHILS % (AUTO) 74.9 % (42.2-75.2); PLATELET COUNT (AUTO) 214 K/uL (140-450); RED BLOOD CELL COUNT(AUTO) 3.08 MIL/uL (4.20-5.40); RED CELL DISTRIBUTION WIDTH 20.3 % (11.6-13.7); WHITE BLOOD COUNT (AUTO) 4.6 K/uL (4.8-10.8)
[2018-11-13 08:00] VITALS: BP 119/83
[2018-11-13 08:01] LABS: MAGNESIUM 1.3 mg/dL (1.8-2.4); PHOSPHORUS 4.3 mg/dL (2.5-4.9)
[2018-11-13 08:06] LABS: ANION GAP 13.2 (8-16); CARBON DIOXIDE 24.9 mmol/L (21-32); CREATININE 0.5 mg/dL (0.6-1.3); POTASSIUM 4.1 mmol/L (3.5-5.1)
--- NOTE | 2018-11-13 08:25 | NUR ---
PATIENT AWAKE SITTING UP IN BED EATING BREAKFAST. UPDATED HER WITH PLAN OF CARE, SHE VERBALIZED UNDERSTANDING. WILL CONTINUE TO MONITOR PATIENT.
[2018-11-13 09:28] LABS: LYMPHOCYTES % (AUTO) 11.4 % (20.5-51.1); MONOCYTES % (AUTO) 9.8 % (1.7-9.3)
[2018-11-13] MEDS: NICOTINE TRANSD SYS 14 MG/24 HR PATCH TD SCH (10:02)
[2018-11-13] MEDS: VITAMIN B COMPLEX W/C 1 TAB PO SCH (10:03)
[2018-11-13] MEDS: MULTIVITAMIN/MINERALS 1 TAB PO SCH (10:03)
[2018-11-13] MEDS: POTASSIUM CHLORIDE 20% 40 MEQ/15 ML UDC GT SCH (10:03)
[2018-11-13] MEDS: SENNA 8.6 MG TAB PO SCH (10:03)
[2018-11-13] MEDS: LACTULOSE 20 GM/30 ML UDC PO SCH (10:03)
--- NOTE | 2018-11-13 10:03 | NUR ---
ORDERED MEDICATIONS GIVEN. PATIENT TOLERATED THEM WELL. PATIENT SITTING UP IN BED READING, NO COMPLAINTS AT THIS TIME. WILL CONTINUE TO MONITOR PATIENT.
[2018-11-13] MEDS ORDERED: MAG SULF 2000 MG/WATER PREMIX 50 ML IV SCH (10:10)
--- NOTE | 2018-11-13 10:37 | NUR ---
PATIENT'S MAG LEVEL 1.3, INFORMED DR. PIKE. NEW ORDER IN. MAG IVPB GIVEN. PATIENT TOLERATING IT. NO COMPLAINTS AT THIS TIME. PATIENT DENIES PAIN. WILL CONTINUE TO MONITOR PATIENT.
--- NOTE | 2018-11-13 12:30 | NUR ---
LAC IV LEAKING, PATIENT REQUESTED REMOVAL, IV REMOVED, IV CATHETER INTACT, MINIMAL BLEEDING NOTED. PATIENT REQUESTED TO HAVE SOME REST BEFORE NEW IV INSERTED. RN VERBALIZED UNDERSTANDING AND WILL INSERT NEW IV AT AGREEABLE TIME. PATIENT SITTING UP IN BED EATING LUNCH, NO COMPLAINTS AT THIS TIME. WILL CONTINUE TO MONITOR PATIENT.
--- NOTE | 2018-11-13 14:02 | NUR ---
PATIENT RESTING IN BED READING, NO COMPLAINTS AT THIS TIME. RESPIRATIONS EVEN AND UNLABORED ON ROOM AIR. WILL CONTINUE TO MONITOR PATIENT.
[2018-11-13 16:00] VITALS: BP 129/90
--- NOTE | 2018-11-13 16:45 | NUR ---
NEW IV INSERTED, PATIENT TOLERATED IT WELL. IV ON RIGHT HAND 22G, INTACT, PATENT, AND ASYMPTOMATIC, SALINE LOCKED. NO COMPLAINTS AT THIS TIME. SAFETY PRECAUTIONS IN PLACE, CALL LIGHT WITHIN REACH, WILL CONTINUE TO MONITOR PATIENT.
--- NOTE | 2018-11-13 19:21 | NUR ---
REPORT GIVEN AT BEDSIDE TO MOTORS AND GENERATORS INSPECTOR NURSE SUMMER FOR CONTINUITY OF CARE. PATIENT IN STABLE CONDITION.
--- NOTE | 2018-11-13 19:30 | NUR ---
RECEIVED BEDSIDE REPORT FROM RN REGIS, PATIENT IN BED, ON ROOM AIR, AAOX4, NO SIGNS OF ACUTE DISTRESS. IV IN RIGHT HAND 22 G SL, DRESSING INTACT, ABDOMEN IS FIRM, SLIGHTLY DISTENDED. EXPLAINED PLAN OF CARE, PATIENT VERBALIZED UNDERSTANDING.
[2018-11-13] MEDS: AMITRIPTYLINE 25 MG TAB PO SCH (20:07)
--- NOTE | 2018-11-13 20:08 | NUR ---
DUE AMITRIPTYLINE GIVEN, EDUCATION PROVIDED, PATIENT TOLERATED WELL.
--- NOTE | 2018-11-13 21:37 | NUR ---
PATIENT ASLEEP IN BED WILL CONTINUE TO MONITOR
[2018-11-13 23:34] VITALS: BP 113/76
--- NOTE | 2018-11-13 23:58 | NUR ---
RESTING IN BED NO SIGNS OF ACUTE DISTRESS
--- NOTE | 2018-11-14 01:57 | NUR ---
PATIENT ASLEEP IN BED NO SIGNS OF DISTRESS
--- NOTE | 2018-11-14 04:00 | NUR ---
AMBULATED TO RESTROOM
[2018-11-14] MEDS: PANTOPRAZOLE 40 MG TABEC PO SCH (05:45)
--- NOTE | 2018-11-14 06:03 | NUR ---
DUE PROTONIX GIVEN
--- NOTE | 2018-11-14 07:13 | NUR ---
ENDORSED PATIENT TO DAY SHIFT NURSE, PATIENT STABLE.
--- NOTE | 2018-11-14 07:14 | NUR ---
REPORT RECEIVED FROM [employer] SUPERVISOR NURSE AT BEDSIDE FOR CONTINUITY OF CARE. PATIENT AOX4. RH 22G IV SITE INTACT, PATENT, SALINE LOCKED. RESPIRATIONS EVEN AND UNLABORED ON ROOM AIR. PATIENT DENIES PAIN. NO COMPLAINTS AT THIS TIME. UPDATED PATIENT WITH PLAN OF CARE, SHE VERBALIZED UNDERSTANDING. UPDATED BOARD. SAFETY PRECAUTIONS IN PLACE, CALL LIGHT WITHIN REACH, WILL CONTINUE TO MONITOR PATIENT.
[2018-11-14 07:51] LABS: ANION GAP 11.5 (8-16); CARBON DIOXIDE 26.5 mmol/L (21-32); CREATININE 0.5 mg/dL (0.6-1.3)
[2018-11-14 07:54] LABS: BASOPHILS # (AUTO) 0.1 K/uL (0.00-0.22); BASOPHILS % (AUTO) 1.3 % (0.0-2.0); EOSINOPHILS # (AUTO) 0.1 K/uL (0-0.4); EOSINOPHILS % (AUTO) 2.5 % (0.0-4.0); HEMATOCRIT 30.7 % (36-48); HEMOGLOBIN 10.3 g/dL (12.0-16.0); LYMPHOCYTES # (AUTO) 0.9 K/uL (2.5-16.5); LYMPHOCYTES % (AUTO) 17.4 % (20.5-51.1); MEAN CORPUSCULAR HEMOGLOBIN 33 pg (27-31); MEAN CORPUSCULAR HGB CONC 33 g/dL (33-37); MEAN CORPUSCULAR VOLUME 99.6 fL (80-94); MONOCYTES # (AUTO) 0.5 K/uL (0.8-1.0); NEUTROPHILS # (AUTO) 3.5 K/uL (1.8-7.7); NEUTROPHILS % (AUTO) 69.8 % (42.2-75.2); PLATELET COUNT (AUTO) 209 K/uL (140-450); RED BLOOD CELL COUNT(AUTO) 3.08 MIL/uL (4.20-5.40); RED CELL DISTRIBUTION WIDTH 19.9 % (11.6-13.7)
[2018-11-14 08:00] VITALS: BP 122/85
[2018-11-14 08:00] LABS: MAGNESIUM 1.5 mg/dL (1.8-2.4); PHOSPHORUS 4.7 mg/dL (2.5-4.9)
[2018-11-14] MEDS: MULTIVITAMIN/MINERALS 1 TAB PO SCH (09:06)
[2018-11-14] MEDS: SENNA 8.6 MG TAB PO SCH (09:06)
[2018-11-14] MEDS: VITAMIN B COMPLEX W/C 1 TAB PO SCH (09:06)
[2018-11-14] MEDS: POTASSIUM CHLORIDE 20% 40 MEQ/15 ML UDC GT SCH (09:06)
[2018-11-14] MEDS: LACTULOSE 20 GM/30 ML UDC PO SCH (09:06)
[2018-11-14] MEDS: NICOTINE TRANSD SYS 14 MG/24 HR PATCH TD SCH (09:07)
--- NOTE | 2018-11-14 09:11 | NUR ---
ORDERED MEDICATIONS GIVEN. PATIENT TOLERATED THEM WELL. PATIENT NOW RESTING IN BED, NO COMPLAINTS AT THIS TIME. SAFETY PRECAUTIONS IN PLACE, CALL LIGHT WITHIN REACH, WILL CONTINUE TO MONITOR PATIENT.
[2018-11-14] MEDS ORDERED: MAGNESIUM OXIDE 400 MG TAB PO SCH (10:17)
--- NOTE | 2018-11-14 12:00 | NUR ---
STOOL SAMPLE OBTAINED. SENT TO LAB. PATIENT RESTING IN BED WATCHING TV, NO COMPLAINTS AT THIS TIME. PATIENT DENIES PAIN. WILL CONTINUE TO MONITOR PATIENT.
[2018-11-14 16:00] VITALS: BP 121/79
--- NOTE | 2018-11-14 16:10 | NUR ---
PATIENT RESTING IN BED WATCHING TV, VS WNL. NO COMPLAINTS AT THIS TIME. PATIENT DENIES PAIN. WILL CONTINUE TO MONITOR PATIENT.
--- NOTE | 2018-11-14 17:25 | NUR ---
PATIENT SITTING UP IN BED EATING DINNER. NO COMPLAINTS AT THIS TIME. PATIENT DENIES PAIN. WILL CONTINUE TO MONITOR PATIENT.
--- NOTE | 2018-11-14 19:10 | NUR ---
REPORT GIVEN TO [employer] RN SUMMER AT BEDSIDE FOR CONTINUITY OF CARE. PATIENT IN STABLE CONDITION.
--- NOTE | 2018-11-14 19:30 | NUR ---
RECEIVED BEDSIDE REPORT FROM RN REGIS, PATIENT IN BED, ON ROOM AIR, AAOX4, NO SIGNS OF ACUTE DISTRESS AT THIS TIME. IV IN RIGHT HAND 22 G SL, DRESSING INTACT, ABDOMEN IS FIRM, SLIGHTLY DISTENDED. EXPLAINED PLAN OF CARE, PATIENT VERBALIZED UNDERSTANDING. WILL GIVE DUE MEDICATIONS.
--- NOTE | 2018-11-14 20:10 | NUR ---
WILL GIVE DUE MEDICATIONS
[2018-11-14] MEDS: AMITRIPTYLINE 25 MG TAB PO SCH (20:13)
--- NOTE | 2018-11-14 22:42 | NUR ---
PATIENT SLEEP IN BED WILL CONTINUE TO MONITOR
[2018-11-14 23:50] VITALS: BP 110/77
--- NOTE | 2018-11-15 01:03 | NUR ---
SLEEPING IN BED WILL CONTINUE TO MONITOR
--- NOTE | 2018-11-15 02:29 | NUR ---
ASLEEP IN BED WILL CONTINUE TO MONITOR
--- NOTE | 2018-11-15 04:38 | NUR ---
RESTING IN BED, CALL LIGHT WITHIN REACH WILL CONTINUE TO MONITOR
[2018-11-15] MEDS: PANTOPRAZOLE 40 MG TABEC PO SCH (05:43)
--- NOTE | 2018-11-15 07:23 | NUR ---
ENDORSED PATIENT TO DAY SHIFT NURSE FOR CONTINUITY OF CARE. PATIENT STABLE.
--- NOTE | 2018-11-15 07:24 | NUR ---
RECEIVED BEDSIDE REPORT FROM MULTI DISCIPLINED LANGUAGE ANALYST NURSE. PATIENT IS AWAKE, ALERT AND ORIENTEDX4. NO SIGNS OF DISTRESS ON RA. SKIN IS INTACT. PATIENT IS AMBULATORY. CONTINENT. IV ON R HAND 22G SL. CLEAN,DRY AND INTACT. CALL LIGHT WITHIN REACH. PATIENT ABLE TO MAKE NEEDS KNOWN. BED IN LOW POSITION. WILL CONTINUE TO MONITOR
[2018-11-15 08:00] VITALS: BP 125/89
[2018-11-15 08:33] LABS: ANION GAP 11.6 (8-16); CARBON DIOXIDE 29.6 mmol/L (21-32); CREATININE 0.5 mg/dL (0.6-1.3); POTASSIUM 4.2 mmol/L (3.5-5.1)
[2018-11-15 08:42] LABS: MAGNESIUM 1.3 mg/dL (1.8-2.4); PHOSPHORUS 4.2 mg/dL (2.5-4.9)
[2018-11-15 08:46] LABS: BASOPHILS # (AUTO) 0.1 K/uL (0.00-0.22); BASOPHILS % (AUTO) 0.9 % (0.0-2.0); EOSINOPHILS # (AUTO) 0.2 K/uL (0-0.4); EOSINOPHILS % (AUTO) 2.6 % (0.0-4.0); HEMATOCRIT 35.4 % (36-48); HEMOGLOBIN 11.8 g/dL (12.0-16.0); LYMPHOCYTES # (AUTO) 1.8 K/uL (2.5-16.5); LYMPHOCYTES % (AUTO) 23.8 % (20.5-51.1); MEAN CORPUSCULAR HEMOGLOBIN 33 pg (27-31); MEAN CORPUSCULAR HGB CONC 33 g/dL (33-37); MEAN CORPUSCULAR VOLUME 100.1 fL (80-94); MONOCYTES # (AUTO) 0.6 K/uL (0.8-1.0); MONOCYTES % (AUTO) 7.6 % (1.7-9.3); NEUTROPHILS # (AUTO) 4.8 K/uL (1.8-7.7); NEUTROPHILS % (AUTO) 65.1 % (42.2-75.2); PLATELET COUNT (AUTO) 292 K/uL (140-450); RED BLOOD CELL COUNT(AUTO) 3.54 MIL/uL (4.20-5.40); RED CELL DISTRIBUTION WIDTH 19.9 % (11.6-13.7); WHITE BLOOD COUNT (AUTO) 7.4 K/uL (4.8-10.8)
[2018-11-15] MEDS ORDERED: OMEP20TC12 PO (09:21)
[2018-11-15] MEDS: LACTULOSE 20 GM/30 ML UDC PO SCH (09:36)
[2018-11-15] MEDS: MULTIVITAMIN/MINERALS 1 TAB PO SCH (09:36)
[2018-11-15] MEDS: POTASSIUM CHLORIDE 20% 40 MEQ/15 ML UDC GT SCH (09:36)
[2018-11-15] MEDS: VITAMIN B COMPLEX W/C 1 TAB PO SCH (09:37)
[2018-11-15] MEDS: NICOTINE TRANSD SYS 14 MG/24 HR PATCH TD SCH (09:37)
[2018-11-15] MEDS: SENNA 8.6 MG TAB PO SCH (09:37)
--- NOTE | 2018-11-15 09:42 | NUR ---
ADMINISTERED MEDS. PATIENT TOLERATED WELL. FRIENDS AT BEDSIDE. THEY BROUGHT ALL HER BELONGINGS. EDUCATED ON MEDS. WILL CONTINUE TO MONITOR THE PATIENT
[2018-11-15] MEDS ORDERED: MAG SULF 2000 MG/WATER PREMIX 50 ML IV SCH (11:00)
--- NOTE | 2018-11-15 11:30 | NUR ---
PATIENT OUT OF BED CLEANING HERSELF UP AND PUTTING MAKE UP ON. NO SIGNS OF DISTRESS. WILL CONTINUE TO MONITOR
--- NOTE | 2018-11-15 12:16 | NUR ---
ADMINISTERED ALEE MAGNESIUM. PATIENT TOLERATING WELL. WILL CONTINUE TO MONITOR THE PATIENT
--- NOTE | 2018-11-15 14:22 | NUR ---
PATIENT IS TALKING TO DR DENSON. NO SIGNS OF DISTRESS. WILL CONTINUE TO MONITOR THE PATIENT
--- NOTE | 2018-11-15 14:35 | NUR ---
DR DENSON TOLD ME THAT THE HE WENT TO THE CM OFFICE AND ASKED IF THEY WERE WORKING ON THE PATIENTS CASE. HE SAID THEY STATED THEY WERE GOING TO GO IN THE ROOM AND SPEAK TO THE PATIENT.
[2018-11-15 16:00] VITALS: BP 142/94
[2018-11-15] MEDS ORDERED: SIMETHICONE 80 MG TAB.CHEW PO SCH (16:00)
--- NOTE | 2018-11-15 16:00 | NUR ---
PATIENT SITTING IN BED. NO SIGNS OF DISTRESS. WILL CONTINUE TO MONITOR THE PATIENT
--- NOTE | 2018-11-15 16:39 | NUR ---
Java Mobile Developer Note: Dyeing Machine Tender Jovanna and I met with patient at bedside to discuss tentative discharge plan. Per patient, Florencia from [facility] is assisting patient with finding a board and care. Patient reported she is planning to live at board and care for a while and then transfer to [facility]. She told us she is agreeable with paying board and care expenses and going to any board and care Florencia is able to locate. I requested for Florencia to please contact patient's nurse and provide RN with board and care details. I informed Florencia plan is to discharge patient today. Addendum: 11/15/18 at 1645 by Carley ALONZO Patient stated prior to hospital admission she was living at [facility] in [place], [place]. However, she is not able to return to [facility] because she cannot participate in labor activities at [facility].
--- NOTE | 2018-11-15 17:05 | NUR ---
ADMINISTERED MEDS. PATIENT TOLERATED WELL. EDUCATED ON SIDE EFFECTS. WILL CONTINUE TO MONITOR THE PATIENT. PATIENT DOING WORD SEARCH AT THIS TIME.
[2018-11-15] MEDS ORDERED: MAG SULF 2000 MG/WATER PREMIX 100 ML IV ONE (17:45)
--- NOTE | 2018-11-15 18:24 | NUR ---
ADMINISTERED SECOND BAG OF MAGNESIUM. ONE MORE MAGNESIUM BAG FOR SALES SERVICE PROMOTER TO ADMINISTER. WILL ENDORSE.
--- NOTE | 2018-11-15 19:39 | NUR ---
GAVE BEDSIDE REPORT TO MEDICAL CODING SPECIALIST NURSE. PATIENT ENDORSED IN STABLE CONDITION. ENDORSED 3RD BAG OF MAGNESIUM TO MATTHIEU RN.
--- NOTE | 2018-11-15 19:40 | NUR ---
RECEIVED BEDSIDE REPORT FROM SHANELL VICTORIA. A/O X4. ABLE TO MAKE NEEDS KNOWN. AMBULATORY. R WRIST 22G. CLEAN DRY INTACT. FIRST 2G MAG INFUSING AT THE MOMENT. SKIN INTACT. ROOM AIR. NO SIGNS OF DISTRESS NOTED. BED IN LOW POSITION. CALL LIGHT WITHIN REACH. WILL CONTINUE TO MONITOR.
--- NOTE | 2018-11-15 20:35 | NUR ---
2ND 2G MAG RIDER IS INFUSING TO COMPLETE 4G DR ORDER. WILL CONTINUE TO MONITOR.
[2018-11-15] MEDS: AMITRIPTYLINE 25 MG TAB PO SCH (20:38)
--- NOTE | 2018-11-15 23:20 | NUR ---
PT STABLE. SLEEPING. EARILY AROUSABLE. 2G MAG COMPLETE. PT NOW SALINE LOCK. NO DISTRESS NOTED. WILL CONTINUE TO MONITOR.
[2018-11-16] VITALS: BP 110/68
--- NOTE | 2018-11-16 02:05 | NUR ---
PT SLEEPING IN BED NO SIGNS OF DISTRESS NOTED. EASILY AROUSABLE. WILL CONTINUE TO MONITOR.
--- NOTE | 2018-11-16 03:27 | NUR ---
PT REMAINS ASLEEP. NO SIGNS OF DISTRESS. EASILY AROUSABLE. WILL CONTINUE TO MONITOR.
[2018-11-16] MEDS: PANTOPRAZOLE 40 MG TABEC PO SCH (05:39)
--- NOTE | 2018-11-16 06:00 | NUR ---
WILL ENDORE PT TO AM SHIFT FOR CONTINUITY OF CARE. PT IN STABLE CONDITION. NO COMPLAINTS. NO DISTRESS NOTED.
--- NOTE | 2018-11-16 07:10 | NUR ---
RECEIVED BEDSIDE SHIFT REPORT FROM NIGHT NURSE. PT STABLE WITH NO OBVIOUS SIGNS OF DISTRESS AND NO REQUESTS AT THIS TIME. PT RIGHT HAND IV INTACT AND PATENT, AND SALINE LOCKED AND FLUSHED. PT IS AOX4 WITH SKIN INTACT LUNGS CLEAR THROUGHOUT ALL LOBES.
[2018-11-16 07:27] LABS: BASOPHILS % (AUTO) 0.7 % (0.0-2.0); EOSINOPHILS # (AUTO) 0.1 K/uL (0-0.4); EOSINOPHILS % (AUTO) 2.5 % (0.0-4.0); HEMATOCRIT 29.4 % (36-48); HEMOGLOBIN 9.8 g/dL (12.0-16.0); LYMPHOCYTES # (AUTO) 0.8 K/uL (2.5-16.5); LYMPHOCYTES % (AUTO) 14.3 % (20.5-51.1); MEAN CORPUSCULAR HEMOGLOBIN 33 pg (27-31); MEAN CORPUSCULAR HGB CONC 33 g/dL (33-37); MEAN CORPUSCULAR VOLUME 99.5 fL (80-94); MONOCYTES # (AUTO) 0.4 K/uL (0.8-1.0); MONOCYTES % (AUTO) 7.5 % (1.7-9.3); NEUTROPHILS # (AUTO) 4.4 K/uL (1.8-7.7); PLATELET COUNT (AUTO) 227 K/uL (140-450); RED BLOOD CELL COUNT(AUTO) 2.96 MIL/uL (4.20-5.40); RED CELL DISTRIBUTION WIDTH 19.5 % (11.6-13.7); WHITE BLOOD COUNT (AUTO) 5.8 K/uL (4.8-10.8)
[2018-11-16 08:00] VITALS: BP 135/97
[2018-11-16 08:04] LABS: ANION GAP 11.5 (8-16); CARBON DIOXIDE 26.9 mmol/L (21-32); CREATININE 0.5 mg/dL (0.6-1.3); POTASSIUM 4.4 mmol/L (3.5-5.1)
[2018-11-16 08:19] LABS: MAGNESIUM 1.9 mg/dL (1.8-2.4); PHOSPHORUS 3.8 mg/dL (2.5-4.9)
[2018-11-16] MEDS: POTASSIUM CHLORIDE 20% 40 MEQ/15 ML UDC GT SCH (09:37)
[2018-11-16] MEDS: SENNA 8.6 MG TAB PO SCH (09:38)
[2018-11-16] MEDS: MULTIVITAMIN/MINERALS 1 TAB PO SCH (09:38)
[2018-11-16] MEDS: VITAMIN B COMPLEX W/C 1 TAB PO SCH (09:38)
[2018-11-16] MEDS: LACTULOSE 20 GM/30 ML UDC PO SCH (09:38)
--- NOTE | 2018-11-16 09:38 | NUR ---
CALLED ALEXI FROM [facility] AT [phone], SHE IS IN CHARGE OF PLACEMENT. SHE SAID THAT THERESA FROM [facility] BOARD AND CARE WILL SUPERINTENDENT PIPELINES THE PATIENT. SPOKE TO THERESA FROM [facility] AT [phone], SHE SAID THAT SHE WILL COME BETWEEN 2-3PM AND ASSESS THE PATIENT FIRST. IF PATIENT IS ACCEPTED, THEY WILL TAKE HER WITH THEM.
[2018-11-16] MEDS: NICOTINE TRANSD SYS 14 MG/24 HR PATCH TD SCH (09:46)
--- NOTE | 2018-11-16 09:48 | NUR ---
ADMINISTERED MORNING MEDICATIONS, REVIEWED EDUCATION OF INDICATION AND SIDE EFFECTS. PT STABLE WITH NO OBVIOUS SIGNS OF DISTRESS. PT HAS NO FURTHER REQUESTS AT THIS TIME. PT STATES NICOTINE PATCH HAS BEEN EFFECTIVE WITH NO WITHDRAWALS OR CRAVINGS.
--- NOTE | 2018-11-16 10:14 | NUR ---
DR DENSON AND TAYO YAN AWARE THAT THERESA FROM [facility] WILL COME TO EVALUATE THE PATIENT AT 2-3PM
--- NOTE | 2018-11-16 11:30 | NUR ---
PT SITTING UP IN BED RESTING WITH NO REQUESTS OR SIGNS OF OBVIOUS DISTRESS.
--- NOTE | 2018-11-16 13:00 | NUR ---
Valve Liner Rubber Note: Per Tiffanie Enrique from [facility] , she will be here between 2pm-3pm today to evaluate patient for board and care placement.
--- NOTE | 2018-11-16 13:48 | NUR ---
PATIENT SITTING IN BED. NO SIGNS OF DISTRESS. WILL CONTINUE TO MONITOR THE PATIENT
--- NOTE | 2018-11-16 15:20 | NUR ---
THERESA PRESENT FOR PATIENT EVALUATION FOR BOARDING CARE PLACEMENT, PER THERESA, PT IS ACCEPTED TO [facility]. EDUCATED PATIENT ON DISEASE PROCESS, ABNORMAL SIGNS AND SYMPTOMS, WHEN TO GO TO ER. EDUCATED FOLLOW UP ON PCP, AND PRESCRIPTIONS AND MEDICATIONS. MEDICATIONS SENT TO [facility]. PATIENT IS AWARE. REMOVED IV, TIP OF CATHETER INTACT. ID BANDS REMOVED. PATIENT REFUSED PNA VACCINE, FLU NOT IN SEASON. EDUCATED ON RISKS OF REFUSING VACCINES, PROVIDED PATIENT WITH ALL BELONGINGS. PT SIGNED DISCHARGE PAPERWORK AND VERBALIZED UNDERSTANDING. PT LEFT IN STABLE CONDITION.
--- NOTE | 2018-11-16 17:20 | NUR ---
Airplane Flight Attendant Supervisor Note: Late entry for earlier today: Tiffanie Enrique from [facility] came to meet with patient. She told me patient [place] been [place] [id number] [facility] [id number]. She stated she will provide transportation for patient, patient's nurse Shari made aware.
== END 2018-11-16 15:20 | DRG 241 ==
LOC: MED 15:27 → MTU 20:05
PROVIDERS: ADMIT General Practice; ATTEND General Practice
PROC: 0DB68ZX Excision of Stomach, Via Natural or Artificial Opening Endoscopic, Diagnostic (ICD-10-PCS; principal; 2018-11-10 11:15)
PROC: 0DBF8ZZ Excision of Right Large Intestine, Via Natural or Artificial Opening Endoscopic (ICD-10-PCS; 2018-11-10 11:15)
DX: K29.70 Gastritis, unspecified, without bleeding (principal); I33.0 Acute and subacute infective endocarditis; I50.43 Acute on chronic combined systolic (congestive) and diastolic (congestive) heart failure; E43 Unspecified severe protein-calorie malnutrition; I07.1 Rheumatic tricuspid insufficiency; K70.30 Alcoholic cirrhosis of liver without ascites; E83.42 Hypomagnesemia; E86.0 Dehydration; K21.0 Gastro-esophageal reflux disease with esophagitis; K44.9 Diaphragmatic hernia without obstruction or gangrene; K22.10 Ulcer of esophagus without bleeding; F10.10 Alcohol abuse, uncomplicated; K27.7 Chronic peptic ulcer, site unspecified, without hemorrhage or perforation; K59.00 Constipation, unspecified; E78.5 Hyperlipidemia, unspecified; K64.8 Other hemorrhoids; I11.0 Hypertensive heart disease with heart failure; D53.9 Nutritional anemia, unspecified; Z87.891 Personal history of nicotine dependence; Z68.22 Body mass index [BMI] 22.0-22.9, adult; Z80.1 Family history of malignant neoplasm of trachea, bronchus and lung
CPT/HCPCS: 36415; 71045; 76705; 80048; 80053; 80305; 81003; 82140; 82150; 82272; 82607; 82728; 82746; 83036; 83540; 83615; 83690; 83735; 83880; 84100; 84134; 84436; 84443; 84484; 85025; 85045; 85610; 86677; 87040; 87081; 88305; 88312; 88313; 93005; 96374; 97161-GP; 99285; J1200; J1885; J2250; J2405; J3010; J3475; J7030; J7042; Q0092; Q9967